=== PATIENT | female | born 1985 | race Caucasian/White ===

== ENCOUNTER 2018-12-07 09:40 | Inpatient (IN) | payer OTHER ==
[~2018-12-07] VITALS: Ht 165.1 cm; Wt 83.5 kg
[2018-12-07] MEDS ORDERED: OXYTOCIN 30 UNITS/LACT RINGERS 500 ML IV ONE (10:34)
[2018-12-07] MEDS ORDERED: METHYLERGONOVINE MALEATE 0.2 MG/ML VIAL IM PRN (10:45)
[2018-12-07] MEDS ORDERED: PREN-217 PO (10:48)
[2018-12-07 11:15] VITALS: BP 122/67
[2018-12-07 11:35] LABS: BASOPHILS % (AUTO) 0.3 % (0.0-2.0); EOSINOPHILS % (AUTO) 0.4 % (1.0-6.0); HEMATOCRIT 35.8 % (36-46); HEMOGLOBIN 11.8 g/dL (12.0-16.0); LYMPHOCYTES # (AUTO) 2.2 K/uL (1.0-4.8); LYMPHOCYTES % (AUTO) 17.7 % (22.0-44.0); MEAN CORPUSCULAR HEMOGLOBIN 26.4 pg (26.0-34.0); MEAN CORPUSCULAR VOLUME 80 fL (80-100); MONOCYTES # (AUTO) 0.7 K/uL (0.1-1.0); MONOCYTES % (AUTO) 5.7 % (2.0-9.0); NEUTROPHILS # (AUTO) 9.4 K/uL (1.8-7.7); NEUTROPHILS % (AUTO) 75.9 % (40.0-70.0); PLATELET COUNT (AUTO)-OB 296 K/uL (150-450); RED BLOOD CELL COUNT(AUTO) 4.47 MIL/uL (4.00-5.20); RED CELL DISTRIBUTION WIDTH 15.1 % (11.5-14.5)
[2018-12-07] MEDS ORDERED: MISOPROSTOL 25 MCG TABLET VG ONE ×2 (11:45→15:45)
[2018-12-07] MEDS: RINGERS SOLUTION,LACTATED 1,000 ML IV SCH ×3 (11:47→22:33)
[2018-12-07] MEDS: RINGERS SOLUTION,LACTATED 1,000 ML IV PRN ×2 (13:09→21:38)
[2018-12-07] MEDS ORDERED: INFLUENZA VIRUS VACCINE QVS 2019-20 (3YR+)/PF 60 MCG/0.5 ML SYRINGE IM ONE (13:15)
[2018-12-07] MEDS ORDERED: OXYGEN THERAPY IH SCH (20:00)
[2018-12-07] MEDS ORDERED: ROPIVACAINE HCL/PF 0.2% 100 ML ED ONE (22:05)
[2018-12-07] MEDS ORDERED: ROPIVACAINE HCL/PF 0.2% 100 ML ED PRN (22:31)
[2018-12-07] MEDS ORDERED: ONDANSETRON HCL 4 MG/2 ML VIAL IVP PRN (22:45)
[2018-12-07] MEDS ORDERED: DiphenhydrAMINE HCL 50 MG/ML VIAL IVP PRN (22:45)
[2018-12-07] MEDS ORDERED: NALBUPHINE HCL 10 MG/ML VIAL IVP PRN (22:45)
[2018-12-08] MEDS: RINGERS SOLUTION,LACTATED 1,000 ML IV SCH (06:16)
[2018-12-08] MEDS ORDERED: OXYTOCIN 30 UNITS/LACT RINGERS 500 ML IV ONE ×2 (08:47→09:39)
[2018-12-08] MEDS ORDERED: MISOPROSTOL 100 MCG TABLET PO ONE (09:30)
[2018-12-08] MEDS ORDERED: BENZOCAINE 20%/MENTHOL 56 GM SPRAY CANISTER TP PRN (10:00)
[2018-12-08] MEDS ORDERED: OxyCODONE HCL/ACETAMINOPHEN 5-325 MG TABLET PO PRN ×2 (10:00)
[2018-12-08] MEDS ORDERED: MEASLES/MUMPS/RUBELLA VACCINE, LIVE 0.5 ML/VIAL SQ ONE (10:00)
[2018-12-08] MEDS ORDERED: LANOLIN 7 GM OINTMENT TP PRN (10:00)
[2018-12-08] MEDS ORDERED: RINGERS SOLUTION,LACTATED 1,000 ML IV ONE (10:00)
[2018-12-08] MEDS ORDERED: GLYCERIN/WITCH HAZEL LEAF 40 PADS JAR TP PRN (10:00)
[2018-12-08] MEDS: IBUPROFEN 600 MG TABLET PO PRN ×2 (14:29→21:33)
[2018-12-08] MEDS ORDERED: MAGNESIUM HYDROXIDE SUSPENSION 30 ML UDCUP PO SCH (21:00)
[2018-12-09] MEDS ORDERED: IBUP-2071 PO (08:58)
[2018-12-09] MEDS ORDERED: DOCU-275 PO (09:01)
[2018-12-09] MEDS: IBUPROFEN 600 MG TABLET PO PRN (10:35)
== END 2018-12-09 11:10 | disposition home or self-care (01) | DRG 807 ==
LOC: 4S 09:40 → OBSVTOIN 09:40 → UNDOADMOB 09:48 → INTOOBSV 09:48 → 4S 09:48
PROVIDERS: ADMIT Obstetrics & Gynecology; ATTEND Obstetrics & Gynecology
PROC: 10E0XZZ Delivery of Products of Conception, External Approach (ICD-10-PCS; principal; 2018-12-08)
PROC: 0W8NXZZ Division of Female Perineum, External Approach (ICD-10-PCS; 2018-12-08)
PROC: 10907ZC Drainage of Amniotic Fluid, Therapeutic from Products of Conception, Via Natural or Artificial Opening (ICD-10-PCS; 2018-12-08)
PROC: 3E02340 Introduction of Influenza Vaccine into Muscle, Percutaneous Approach (ICD-10-PCS; 2018-12-08)
PROC: 3E0R3BZ Introduction of Anesthetic Agent into Spinal Canal, Percutaneous Approach (ICD-10-PCS; 2018-12-08)
PROC: 00HU33Z Insertion of Infusion Device into Spinal Canal, Percutaneous Approach (ICD-10-PCS; 2018-12-08)
DX: O24.429 Gestational diabetes mellitus in childbirth, unspecified control (principal); Z37.0 Single live birth; Z3A.39 39 weeks gestation of pregnancy; Z23 Encounter for immunization
CPT/HCPCS: 86850; 86900; 86901; 90686; J2590; J2795; J7120